=== PATIENT | male | born 1960 | race Hispanic/Latino ===

== ENCOUNTER 2024-11-04 12:37 | Observation (INO) | payer BC ==
[~2024-11-04] VITALS: Ht 172.7 cm; Wt 97.5 kg
--- NOTE | 2024-11-04 12:52 | NUR ---
PATIENT IN ER LOBBY. PENDING GFR RESULTS, IV SITE & CONSENT FOR CT EXAM.
--- NOTE | 2024-11-04 13:12 | EKG ---
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
--- NOTE | 2024-11-04 13:36 | ERN ---
General Chief Complaint: Dizzy/Light Headed Stated Complaint: VOMITTING,DIZZY Time Seen by MD: 12:38 History of Present Illness Initial Comments 64-year-old male who presents for dizziness and vomiting. Patient reports in the middle night he felt a spinning sensation. He was able fall back to sleep. New woke up this morning he felt this has been a sensation again. He reports with a remove his head for the last arrived and feels very very dizzy. He was vomited multiple times. He was no headache. No recent falls. He was not take a blood thinner. He was no chest pain. No neck stiffness or injury. Denies any other symptoms. He was never had this before. Denies recent ear infection and congestion. Allergies: Coded Allergies: No Known Drug Allergies (Unverified Allergy, Unknown, 11/04/24) Home Meds Reported Medications Atorvastatin Calcium (LIPITOR) 20 Mg Tab, 20 MG PO HS, TAB 11/04/24 Past Medical History Past Medical History: High Cholesterol Past Surgical History: None ROS Dictation CONSTITUTIONAL: No chills, no fever, no weakness, no diaphoresis, no malaise. HEAD/FACE: No signs of trauma. EENT: No eye pain, no blurred vision, no tearing, no double vision, no ear pain, no ear discharge, no nose pain, no nasal congestion, no throat pain, no throat swelling, no mouth pain. RESPIRATORY: No cough, no orthopnea, no SOB, no stridor, no wheezing. CARDIOVASCULAR: No chest pain, no edema, no palpitations, no syncope. GASTROINTESTINAL/ABDOMINAL: No abdominal pain, no constipation, no diarrhea, no nausea, no vomiting. GENITOURINARY: No abnormal discharge, no dysuria, no frequent urination, no hematuria. No complaints of pain in the genitals. MUSCULOSKELETAL: No back pain, no gout, no joint pain, no joint swelling, no muscle pain, no muscle stiffness, no neck pain. INTEGUMENTARY: No change in color, no change in hair/nails, no dryness, no lesion, no lumps, no rash. NEUROLOGICAL/PSYCH: Dizziness and vomiting. HEMATOLOGIC/LYMPHATIC: Not anemic, no history of blood clots, no apparent bleeding, no bruising, glands not swollen. All Systems Negative, Except as Noted. Physical Exam Physical Exam Dictation VITAL SIGNS: Reviewed. GENERAL APPEARANCE: Alert, oriented x3, moderate distress due to the dizziness HEAD AND FACE: Non-traumatic. EYES: PERRL, pink conjunctivas, eyelid no trauma, anterior chamber clear. EARS: Pinnas intact and no signs of trauma or erythema. Ear canals clear and no discharge. TMs no erythema. NOSE: No discharge, no bleeding. OROPHARYNX: Mouth normal, teeth no caries, tongue pink. Pharynx clear, no erythema. Tonsils no exudates, no abscesses noted. Mucous membrane moist. NECK: Supple, non-tender, no thyromegaly, no masses, no JVD, no bruits. BREAST: Deferred. CHEST: No tenderness, no crepitus, no paradoxical movement, no retractions. LUNGS: Clear, well-ventilated, symmetric, no rales, no wheezing, no rhonchi, no stridor, good breath sounds bilaterally. HEART: Regular rate, regular rhythm, no murmur, no gallops. VASCULAR: No peripheral edema. ABDOMEN: Soft, positive bowel sounds, nondistended, no guarding, nontender, no rebound, no masses no hepatomegaly, no splenomegaly, no Rueda's sign, no hernias. RECTAL: Deferred. GENITAL: Deferred. NEUROLOGICAL: Normal speech, gross motor function intact, gross sensory function intact. MUSCULOSKELETAL: Neck nontender, full range of motion, back nontender, full range of motion. EXTREMITIES: Nontender, full range of motion. SKIN: Color pink, dry, no turgor, no rash, no lacerations, no abrasions, no contusions. LYMPHATICS: Deferred. Results Laboratory and Microbiology Lab and Micro Result Laboratory Tests Test 11/04/24 13:42 White Blood Count 7.4 K/uL (4.8-10.8) Red Blood Count 5.04 MIL/uL (4.50-6.20) Hemoglobin 15.2 g/dL (14.0-18.0) Hematocrit 44.7 % (42-54) Mean Corpuscular Volume 88.7 fL (79-99) Mean Corpuscular Hemoglobin 30.2 pg (27.0-33.0) Mean Corpuscular Hemoglobin Concent 34.0 g/dL (32.0-36.0) Red Cell Distribution Width 13.4 % (11.0-15.5) Platelet Count 244 K/uL (130-400) Mean Platelet Volume 9.7 fL (7.5-10.5) Immature Granulocyte % (Auto) 0.3 % (0-1) Neutrophils (%) (Auto) 79.8 % (40.0-77.0) H Lymphocytes (%) (Auto) 16.3 % (21.0-51.0) L Monocytes (%) (Auto) 3.4 % (3.0-13.0) Eosinophils (%) (Auto) 0.1 % (0.0-8.0) Basophils (%) (Auto) 0.1 % (0.0-5.0) Neutrophils # (Auto) 5.9 K/uL (1.8-7.7) Lymphocytes # (Auto) 1.2 K/uL (1.0-4.8) Monocytes # (Auto) 0.3 K/uL (0.1-1.0) Eosinophils # (Auto) 0.01 K/uL (0.00-0.70) Basophils # (Auto) 0.01 K/uL (0.00-0.20) Absolute Immature Granulocyte (auto 0.02 K/uL (0-1) Nucleated Red Blood Cells 0.0 % (0.0-0.19) Prothrombin Time 10.7 SEC (9.6-11.6) Prothromb Time International Ratio 1.01 (0.85-1.15) Activated Partial Thromboplast Time 26.2 SEC (26.3-35.5) L Urine Color YELLOW (YELLOW) Urine Appearance HAZY (CLEAR) Urine pH 7.0 (5.0-8.0) Urine Specific [place] 1.022 (1.001-1.031) Urine Protein 10 mg/dL (NEGATIVE) H Urine Glucose (UA) NEGATIVE mg/dL (NEGATIVE) Urine Ketones NEGATIVE mg/dL (NEGATIVE) Urine Occult Blood NEGATIVE (NEGATIVE) Urine Nitrate NEGATIVE (NEGATIVE) Urine Bilirubin NEGATIVE mg/dL (NEGATIVE) Urine Urobilinogen 0.2 mg/dL (0.2-1.0) Urine Leukocyte Esterase NEGATIVE Adolfo/uL Urine RBC 2-5 /HPF (0-1) H Urine WBC 0-1 /HPF (0-1) Urine Squamous Epithelial Cells RARE /HPF (0-2) Urine Amorphous Crystals (Auto) FEW /LPF (None Seen) Urine Bacteria FEW /HPF (None Seen) Sodium Level 140 mmol/L (136-145) Potassium Level 4.1 mmol/L (3.5-5.1) Chloride Level 103 mmol/L (101-111) Carbon Dioxide Level 29 mmol/L (21-32) Blood Urea Nitrogen 16 mg/dL (7-18) Creatinine 0.9 mg/dL (0.5-1.3) Glomerular Filtration Rate Calc 96 mL/min (>90) Random Glucose 144 mg/dL (70-105) H Hemoglobin A1c 5.9 % (4.0-6.0) Estimated Average Glucose (eAG) 123 mg/dL (70-126) Total Calcium 8.5 mg/dL (8.5-10.1) Total Creatine Kinase 142 U/L (21-232) Troponin I High Sensitivity < 4 ng/L (4-75) L C-Reactive Protein, Quantitative < 0.50 mg/L (0.5-3.0) L B-Type Natriuretic Peptide 79 pg/mL (0-100) LDL Cholesterol 84 mg/dL (0-99) Procalcitonin < 0.05 ng/mL (0.05-0.5) L Thyroid Stimulating Hormone (TSH) 0.80 uIU/mL (0.36-3.74) MDM CC: Dizziness spinning sensation beginning earlier today Historian: Patient Comorbidities: He has been told that he was a prediabetic but does not take any current medications. Limitations by social determinants of health: None Differential diagnosis: Vertigo, central vertigo, cerebellar stroke, ENT cause, cardiac cause Initial vital signs are stable. Initial clinical exam does not show any obvious nystagmus. Cranial nerves are intact. [id number] normal. No lateral deficits. NIHSS of 0. Patient was not a TNK candidate, symptoms has been present for over 12 hours. Very low suspicion for large vessel occlusion due to the low NIHSS. EKG: Sinus rhythm, rate 63, normal axis, early R-wave progression, intervals are stable. No STEMI. Independently interpreted by me. Labs (independently interpreted by me ): The CBC is normal. Coags are normal. Metabolic panel normal. CK troponin BNP and LDL are normal. Urinalysis unremarkable. CT head without contrast ( independently interpreted by me ): No acute bleeding or abnormalities. CXR (independently interpreted by me ): No cardiomegaly pleural effusions or focal infiltrates. Based on the presentation it is difficult to tell if this is BPPV versus a central cause. He was no obvious focal neurologic deficits but you can when he is sitting still it was eyes closed he can feel the spinning sensation, it has been present for about 12 hours now. Recommended an admission for further treatment and evaluation and likely an MRI, treatment in ED: 1 L lactated Ringer's, meclizine oral, diazepam IV. Re-evaluation: Patient still has a normal neurologic examination but is still feeling vertiginous symptoms. Consultation: Hospitalist for admission. ED Course Orders Procedure Category Date Status Time Cbc With Differential LAB 11/04/24 Complete 12:46 Prothrombin Time With LAB 11/04/24 Complete INR 12:46 Partial LAB 11/04/24 Complete Thromboplastin Time 12:46 Ct Head/Brain W/O CT 11/04/24 Resulted Contrast 12:46 Chest 1vw RAD 11/04/24 Resulted 12:46 12 Lead Ekg Tracing- EKG 11/04/24 Complete Technical 12:46 Lactated Ringers PHA 11/04/24 Complete 1000ml (Lactated 13:00 Creatine Kinase, Total LAB 11/04/24 Complete 12:46 Ldl Direct LAB 11/04/24 Complete 12:46 Troponin I High LAB 11/04/24 Complete Sensitivity 12:46 Urinalysis Profile LAB 11/04/24 Complete 12:46 B-Type Natriuretic LAB 11/04/24 Complete Peptide 12:46 Bedside Glucose CPOE 11/04/24 Transmitted Fingerstick 12:46 Basic Metabolic Panel LAB 11/04/24 Complete 12:46 Ct Angio Head And Neck CT 11/04/24 Resulted 12:46 Meclizine Hcl 25 Mg PHA 11/04/24 Complete (Antivert 25 Mg) 13:00 Diazepam 5 Mg/Ml 2 Ml PHA 11/04/24 Complete Syg (Valium 5 Mg/M 13:00 Metoclopramide 10 PHA 11/04/24 Complete Mg/2 Ml Vial (Reglan 1 14:30 Aspirin 325mg Tab PHA 11/04/24 Complete (Aspirin 325mg Tab) 14:30 Iohexol (Omnipaque) PHA 11/04/24 Complete 14:29 Current Medications Medications (Trade) Dose Ordered Sig/Kye Route PRN Reason Start Time Stop Time Status Last Admin Dose Admin Aspirin (Aspirin 325mg Tab) 325 mg ONCE ONCE PO 11/04/24 14:30 11/04/24 14:31 DC 11/04/24 14:56 Diazepam (VALium 5 MG/ML 2 ML SYG) 2.5 mg ONCE ONCE IVP 11/04/24 13:00 11/04/24 13:01 DC 11/04/24 13:46 Iohexol (Omnipaque) 35,000 mg STK-MED ONCE IV 11/04/24 14:29 11/04/24 14:29 DC Lactated Ringer's 1,000 ml @ 250 mls/hr ONCE ONCE IV 11/04/24 13:00 11/04/24 16:59 DC 11/04/24 13:45 Meclizine HCl (ANTIvert 25 mg) 25 mg ONCE ONCE PO 11/04/24 13:00 11/04/24 13:01 DC 11/04/24 13:45 Metoclopramide HCl (regLAN 10MG IV) 5 mg ONCE ONCE IVP 11/04/24 14:30 11/04/24 14:31 DC 11/04/24 14:56 Vital Signs Date Time Temp Pulse Resp B/P (MAP) Pulse Ox O2 Delivery O2 Flow Rate FiO2 11/04/24 12:42 97.9 77 14 126/81 98 Room Air 0 DX & DISP Disposition: Inpatient (Hospitalist, Dr Campbell) Departure Impression: Primary Impression: Vertigo Additional Impression: Stroke-like symptoms Condition: Stable Referrals: SELF,REFERRAL (PCP) RIN PLUMMER DO Nov 04, 2024 13:36
[2024-11-04] MEDS: LACTATED RINGERS 1000ML 1,000 ML IV ONE (13:45)
[2024-11-04] MEDS: mecliZINE HCL 25 MG TABLET PO ONE (13:45)
[2024-11-04] MEDS: diazePAM 5 MG/ML 2 ML SYG IVP ONE (13:46)
[2024-11-04 13:52] LABS: BASOPHILS # (AUTO) 0.01 K/uL (0.00-0.20); BASOPHILS % (AUTO) 0.1 % (0.0-5.0); EOSINOPHILS # (AUTO) 0.01 K/uL (0.00-0.70); EOSINOPHILS % (AUTO) 0.1 % (0.0-8.0); HEMATOCRIT 44.7 % (42-54); IMMATURE GRANULOCYTE ABSOLUTE 0.02 K/uL (0-1); LYMPHOCYTES # (AUTO) 1.2 K/uL (1.0-4.8); LYMPHOCYTES % (AUTO) 16.3 % (21.0-51.0); MEAN CORPUSCULAR HEMOGLOBIN 30.2 pg (27.0-33.0); MEAN CORPUSCULAR VOLUME 88.7 fL (79-99); MONOCYTES # (AUTO) 0.3 K/uL (0.1-1.0); MONOCYTES % (AUTO) 3.4 % (3.0-13.0); NEUTROPHILS # (AUTO) 5.9 K/uL (1.8-7.7); NEUTROPHILS % (AUTO) 79.8 % (40.0-77.0); PLATELET COUNT (AUTO) 244 K/uL (130-400); RED BLOOD CELL COUNT(AUTO) 5.04 MIL/uL (4.50-6.20); RED CELL DISTRIBUTION WIDTH 13.4 % (11.0-15.5); WHITE BLOOD COUNT (AUTO) 7.4 K/uL (4.8-10.8)
[2024-11-04 13:59] LABS: ADD UA MICROSCOPIC YES; APPEARANCE,URINE HAZY (CLEAR); BILIRUBIN,URINE NEGATIVE (NEGATIVE); COLOR,URINE YELLOW (YELLOW); GLUCOSE, URINE (UA) NEGATIVE (NEGATIVE); KETONES,URINE NEGATIVE (NEGATIVE); LEUKOCYTE ESTERASE ,URINE NEGATIVE Leu/uL (NEGATIVE); NITRATE,URINE NEGATIVE (NEGATIVE); OCCULT BLOOD,URINE NEGATIVE (NEGATIVE); PROTEIN,URINE 10 mg/dL (NEGATIVE); UROBILINOGEN,URINE 0.2 mg/dL (0.2-1.0)
--- NOTE | 2024-11-04 14:02 | HMCIMG ---
CT HEAD WITHOUT CONTRAST INDICATION: Dizziness, nausea and vomiting TECHNIQUE: Noncontrast axial helical CT images from the vertex through the skull base using 5 mm slice thickness without contrast material. CT was performed with one or more of the following dose reduction techniques: Automated exposure control, adjustment of the mA and/or kV according to patient size, or use of iterative reconstruction technique. COMPARISON: None FINDINGS: The cerebral and cerebellar hemispheres are age-appropriate in appearance. No evidence for abnormal extra-axial fluid collections or masses. The ventricles and sulci are normal in size and configuration. No evidence for intracranial parenchymal, epidural, or subdural hemorrhage, mass effect or midline shift. The paez-white matter differentiation is well preserved. No secondary evidence to suggest acute ischemia. The brainstem and cerebellum appear normal. The visualized orbits appear unremarkable. The visible paranasal sinuses and mastoid air cells are clear. The calvarium appears normal. IMPRESSION: No acute intracranial process identified.
[2024-11-04 14:03] LABS: INR 1.01 (0.85-1.15); PROTHROMBIN TIME 10.7 SEC (9.6-11.6)
[2024-11-04 14:05] LABS: BACTERIA,URINE FEW /HPF (None Seen); MUCUS,URINE FEW LPF (None Seen); PARTIAL THROMBOPLASTIN TIME 26.2 SEC (26.3-35.5); SQUAMOUS EPITHELIAL CELL,UR RARE /HPF (0-2); WBC,URINE 0-1 /HPF (0-1)
[2024-11-04 14:11] LABS: CREATININE 0.9 mg/dL (0.5-1.3); POTASSIUM 4.1 mmol/L (3.5-5.1)
[2024-11-04 14:12] LABS: B-TYPE NATRIURETIC PEPTIDE 79 pg/mL (0-100)
[2024-11-04] MEDS ORDERED: IOHEXOL 350 MG/ML 100ML INFUS..BTL IV ONE (14:29)
--- NOTE | 2024-11-04 14:46 | HMCIMG ---
PORTABLE CHEST RADIOGRAPH INDICATION: chest pain COMPARISON: None FINDINGS: Heart size is normal. The pulmonary vascularity and wallace appear normal. No abnormal pulmonary parenchymal opacity or consolidation identified. No significant pleural effusion noted. No pneumothorax detected. IMPRESSION: No radiographic evidence for any acute cardiopulmonary process.
[2024-11-04] MEDS: ASPIRIN 325MG TAB PO ONE (14:56)
[2024-11-04] MEDS: metoCLOPRAmide 10 MG/2 ML VIAL IVP ONE (14:56)
--- NOTE | 2024-11-04 15:31 | HMCIMG ---
CT ANGIO HEAD AND NECK HISTORY: dizziness TECHNIQUE: CT ANGIO HEAD AND NECK. The study was performed using angiographic technique with maximum intensity projection reconstruction images. CT was performed with one or more of the following dose reduction techniques: Automated exposure control, adjustment of the mA and/or kV according to the patient's size, or use of the iterative reconstruction technique. Contrast: 100 cc of Omnipaque. Comparison: CT head performed on the same date. FINDINGS: The visualized bilateral vertebral and basilar arteries are patent. No significant stenosis in the posterior cerebral arteries. The bilateral internal carotid arteries are patent without flow-limiting stenosis. No significant stenosis seen in the bilateral anterior cerebral and middle cerebral arteries up to the bifurcation. No CT evidence of cerebral aneurysm or abnormal arteriovenous communication is seen. Diffuse atherosclerosis changes are present. IMPRESSION: No major vessel occlusion or high-grade stenosis is identified.
[2024-11-04] MEDS ORDERED: ATOR10 PO (15:52)
[2024-11-04] MEDS ORDERED: MAGNESIUM 2GM PREMIX 50ML 50 ML IV PRN (16:00)
[2024-11-04] MEDS ORDERED: acetaMINOPHEN 500 MG TABLET PO PRN (16:00)
[2024-11-04] MEDS ORDERED: ondanSETRON 4MG INJ IVP PRN (16:00)
[2024-11-04] MEDS ORDERED: PoTASSium chl 10% ELIXIR 20MEQ 20 MEQ/15 ML UDCUP PO PRN (16:00)
[2024-11-04] MEDS ORDERED: hydrALAZine 20MG/ML VIAL IV PRN (16:00)
[2024-11-04] MEDS ORDERED: PoTASSium chloRIDE 20MEQ/100ML 100 ML IV PRN (16:00)
[2024-11-04] MEDS ORDERED: mecliZINE HCL 12.5 MG TABLET PO PRN (16:00)
[2024-11-04] MEDS ORDERED: PoTASSium chloRIDE 20MEQ ER 20 MEQ ERTAB PO PRN (16:00)
[2024-11-04 16:24] LABS: HEMOGLOBIN A1C 5.9 % (4.0-6.0)
[2024-11-04] MEDS: 0.9%NACL 1000ML 1,000 ML IV SCH (16:28)
--- NOTE | 2024-11-04 18:22 | HP ---
[facility] PH[facility] Date of Service: Nov 04, 2024 Time of Service: 18:16 HISTORY OF PRESENT ILLNESS: 64-year-old male with past medical history of hyperlipidemia presented to the hospital secondary to dizziness and vomiting. The patient states his symptoms started yesterday which was associated with a spinning sensation. He had associated nausea and vomiting. He denied any head trauma, falls, syncopal episode. Denied any fever, chills. He noted headache in the occipital area which improved. Denied any upper or lower extremity weakness, paresthesias. Denied any recent URI, rhinorrhea, cough, sputum production. Denied any dysarthria, dysphagia. Denied any neck stiffness, changes in his hearing, ear pain. He does not take any blood thinners at home. He also feels his symptoms are exacerbated by change in head position. Labs in the ED were notable for white count of 7.4, hemoglobin was 15.2, platelet count was 244 K, sodium was 140, potassium was 4.1, creatinine was 0.9, blood glucose was one four for Patient underwent CT head which was negative, CT angio of the head and neck showed no major vessel occlusion or high-grade stenosis. Chest x-ray showed no evidence of any infiltrates. Patient received diazepam, meclizine with some improvement in symptoms but his symptoms did not fully improve and he was recommended to be admitted to the hospital for further evaluation. REVIEW OF SYSTEMS CONSTITUTIONAL: Denies fevers, chills, or night sweats. No unintentional weight loss reported. NEUROLOGICAL: Denies headache, amaurosis fugax, motor weakness, sensory deficit , gait abnormalities, or tremors. Positive for Vertigo/spinning sensation ENT: No hearing loss, otalgia, otorrhea, rhinitis, rhinorrhea, hoarseness, or sore throat. CARDIOVASCULAR: Denies any exertional angina, dyspnea on exertion, orthopnea, paroxysmal nocturnal dyspnea, palpitations, life-threatening arrhythmias, claudication. PULMONARY: Denies any shortness of breath, cough, phlegm/sputum, hemoptysis, pleuritic chest pain. GASTROINTESTINAL: Denies any type of dysphagia to either liquids or solids. Denies nausea, vomiting, pyrosis, early satiety, abdominal pain, diarrhea, constipation, or changes in stool consistency or caliber. Denies coffee-ground emesis, hematemesis, hematochezia, or melanotic stools. GENITOURINARY: Denies frequency, urgency, nocturia, hematuria or incontinence (Storage/Irritative symptoms.) Low urinary stream, straining to void, urinary intermittency or hesitancy, splitting of the voiding stream, terminal dribbling. ENDOCRINOLOGIC: Denies polyuria, polydipsia, polyphagia or heat/cold intolerances. HEMATOLOGIC: Denies thrombophilia/previous clots, or coagulopathy/bleeding disorders. ONCOLOGIC: Denies personal history of malignancy. DERMATOLOGIC: Denies rashes or pruritus. PSYCHIATRIC: Denies any suicidal or homicidal ideation. Denies hallucinations. PAST MEDICAL HISTORY: Hyperlipidemia PAST SURGICAL HISTORY: Denied any surgical history. PAST SOCIAL HISTORY: Patient drinks beer every 3-4 days. Drinks around 3-4 cans of beer. He has been drinking more than 10 years. Denied any smoking. Denied any drug use FAMILY HISTORY: Denied any pertinent family history Coded Allergies: No Known Drug Allergies (Unverified Allergy, Unknown, 11/04/24) PHYSICAL EXAM GENERAL APPEARANCE: The patient is awake, alert, and oriented, in no acute cardiopulmonary distress. NEUROLOGICAL: Cranial nerves II-XII grossly intact. Motor is 5/5 in bilateral upper and lower extremities proximal to distal. No sensory deficits. HEENT: Face is symmetric. Pupils are equal and reactive. Extraocular movements are intact. NECK: Supple. No JVD. No thyromegaly. No submental, submandibular, pre- /postauricular, occipital or supraclavicular lymphadenopathy. CHEST: Normal chest expansion. No Telemetry. LUNGS: Absence of any rales, rhonchi or any wheezing. CARDIOVASCULAR: Regular. S1 and S2 normal. No appreciable rubs, murmurs or gallops. ABDOMEN: Soft, nontender, and nondistended. There is no rebound, voluntary guarding, or rigidity. : Deferred. No Johnson. EXTREMITIES: Non-edematous and not cyanotic. No clubbing. Good capillary refill. SKIN: No skin breakdown. Vital Sign (Last 24 Hours) 11/04/24 17:13 Temp 97.9 Pulse 74 Resp 16 B/P (MAP) 130/71 Pulse Ox 98 O2 Delivery Room Air* O2 Flow Rate 0 FiO2 21 LABS: Laboratory: Test 11/04/24 13:42 Range/Units White Blood Count 7.4 4.8-10.8 K/uL Red Blood Count 5.04 4.50-6.20 MIL/uL Hemoglobin 15.2 14.0-18.0 g/dL Hematocrit 44.7 42-54 % Mean Corpuscular Volume 88.7 79-99 fL Mean Corpuscular Hemoglobin 30.2 27.0-33.0 pg Mean Corpuscular Hemoglobin Concent 34.0 32.0-36.0 g/dL Red Cell Distribution Width 13.4 11.0-15.5 % Platelet Count 244 130-400 K/uL Mean Platelet Volume 9.7 7.5-10.5 fL Immature Granulocyte % (Auto) 0.3 0-1 % Neutrophils (%) (Auto) 79.8 H 40.0-77.0 % Lymphocytes (%) (Auto) 16.3 L 21.0-51.0 % Monocytes (%) (Auto) 3.4 3.0-13.0 % Eosinophils (%) (Auto) 0.1 0.0-8.0 % Basophils (%) (Auto) 0.1 0.0-5.0 % Neutrophils # (Auto) 5.9 1.8-7.7 K/uL Lymphocytes # (Auto) 1.2 1.0-4.8 K/uL Monocytes # (Auto) 0.3 0.1-1.0 K/uL Eosinophils # (Auto) 0.01 0.00-0.70 K/uL Basophils # (Auto) 0.01 0.00-0.20 K/uL Absolute Immature Granulocyte (auto 0.02 0-1 K/uL Nucleated Red Blood Cells 0.0 0.0-0.19 % Prothrombin Time 10.7 9.6-11.6 SEC Prothromb Time International Ratio 1.01 0.85-1.15 Activated Partial Thromboplast Time 26.2 L 26.3-35.5 SEC Urine Color YELLOW YELLOW Urine Appearance HAZY CLEAR Urine pH 7.0 5.0-8.0 Urine Specific [place] 1.022 1.001-1.031 Urine Protein 10 H NEGATIVE mg/dL Urine Glucose (UA) NEGATIVE NEGATIVE mg/dL Urine Ketones NEGATIVE NEGATIVE mg/dL Urine Occult Blood NEGATIVE NEGATIVE Urine Nitrate NEGATIVE NEGATIVE Urine Bilirubin NEGATIVE NEGATIVE mg/dL Urine Urobilinogen 0.2 0.2-1.0 mg/dL Urine Leukocyte Esterase NEGATIVE NEGATIVE Adolfo/uL Urine RBC 2-5 H 0-1 /HPF Urine WBC 0-1 0-1 /HPF Urine Squamous Epithelial Cells RARE 0-2 /HPF Urine Amorphous Crystals (Auto) FEW None Seen /LPF Urine Bacteria FEW None Seen /HPF Sodium Level 140 136-145 mmol/L Potassium Level 4.1 3.5-5.1 mmol/L Chloride Level 103 101-111 mmol/L Carbon Dioxide Level 29 21-32 mmol/L Blood Urea Nitrogen 16 7-18 mg/dL Creatinine 0.9 0.5-1.3 mg/dL Glomerular Filtration Rate Calc 96 >90 mL/min Random Glucose 144 H 70-105 mg/dL Hemoglobin A1c 5.9 4.0-6.0 % Estimated Average Glucose (eAG) 123 70-126 mg/dL Total Calcium 8.5 8.5-10.1 mg/dL Total Creatine Kinase 142 21-232 U/L Troponin I High Sensitivity < 4 L 4-75 ng/L C-Reactive Protein, Quantitative < 0.50 L 0.5-3.0 mg/L B-Type Natriuretic Peptide 79 0-100 pg/mL LDL Cholesterol 84 0-99 mg/dL Procalcitonin < 0.05 L 0.05-0.5 ng/mL Thyroid Stimulating Hormone (TSH) 0.80 0.36-3.74 uIU/mL Current Medications Medications (Trade) Dose Ordered Sig/Kye Route PRN Reason Start Time Stop Time Status Last Admin Dose Admin Acetaminophen (TYLenol 500MG TAB) 500 mg Q6H PRN PO MILD PAIN (1-3) 11/04/24 16:00 12/04/24 15:59 Famotidine (Pepcid 20mg Vial) 20 mg BID IV 11/04/24 21:00 12/04/24 20:59 Hydralazine HCl (APRESOLine 20MG INJ) 10 mg Q6H PRN IV ADMINISTER FOR SBP > 180 11/04/24 16:00 12/04/24 15:59 Magnesium Sulfate 50 ml @ 0 mls/hr PROTOCOL PRN IV hypomagnesemia 11/04/24 16:00 12/04/24 15:59 Meclizine HCl (ANTIvert 12.5 mg) 12.5 mg TID PRN PO DIZZINESS 11/04/24 16:00 12/04/24 15:59 Ondansetron HCl (zoFRAN 4MG INJ) 4 mg Q6H PRN IVP NAUSEA/VOMITING 11/04/24 16:00 12/04/24 15:59 Potassium Chloride 100 ml @ 100 mls/hr AD PRN IV POTASSIUM PROTOCOL 11/04/24 16:00 12/04/24 15:59 Potassium Chloride (K-Dur/Klor-Con 20meq) 20 meq AD PRN PO POTASSIUM PROTOCOL 11/04/24 16:00 12/04/24 15:59 Potassium Chloride (KCl 10% Elixir 20meq/15ml) 20 meq AD PRN PO POTASSIUM PROTOCOL 11/04/24 16:00 12/04/24 15:59 Sodium Chloride 1,000 ml @ 100 mls/hr Q10H IV 11/04/24 16:00 12/04/24 15:59 11/04/24 16:28 100 MLS/HR DIAGNOSTICS / RADIOLOGY: [ ] ASSESSMENT: Vertigo differential peripheral versus central Suspected benign positional vertigo Hyperlipidemia PLAN: - patient to be admitted to medical-surgical unit with telemetry -in reference to vertigo. We will also obtain a brain MRI to rule out stroke. Symptoms likely in setting of BPPV. We will request Neurology consultation. We will obtain PT evaluation for vestibular exercises. -start patient on meclizine 12.5 mg t.i.d. p.r.n. for vertigo -start NS for gentle hydration -further orders per hospitalization course. Advanced Care Planning Which of the following were discussed: Hospice care: Yes __ No _x_ Therapeutic options: Yes __ No __ Advance directives: Yes __ No __ Other discussions: Pt is full code Discussed with who?: patient (Patient, family or surrogates) Voluntary nature of this service was explained to the patient? Yes _x_ No __ Amount of time spent: 25 minutes CARLOS Finney MD, MD Nov 04, 2024 18:22
--- NOTE | 2024-11-04 18:30 | NUR ---
DR MEDRANO MADE AWARE OF NEURO CONSULT
[2024-11-04] MEDS: atorVAStatin 10 MG TABLET PO SCH (20:49)
[2024-11-04] MEDS: FAMOTIDINE 20MG VIAL IV SCH (20:49)
[2024-11-05 05:01] VITALS: O2SAT 98
[2024-11-05 07:12] LABS: BASOPHILS # (AUTO) 0.02 K/uL (0.00-0.20); BASOPHILS % (AUTO) 0.4 % (0.0-5.0); EOSINOPHILS # (AUTO) 0.07 K/uL (0.00-0.70); EOSINOPHILS % (AUTO) 1.4 % (0.0-8.0); HEMATOCRIT 41.7 % (42-54); IMMATURE GRANULOCYTE ABSOLUTE 0.01 K/uL (0-1); LYMPHOCYTES # (AUTO) 1.5 K/uL (1.0-4.8); LYMPHOCYTES % (AUTO) 30.3 % (21.0-51.0); MEAN CORPUSCULAR HEMOGLOBIN 29.7 pg (27.0-33.0); MEAN CORPUSCULAR HGB CONC 33.1 g/dL (32.0-36.0); MEAN CORPUSCULAR VOLUME 89.9 fL (79-99); MONOCYTES # (AUTO) 0.4 K/uL (0.1-1.0); MONOCYTES % (AUTO) 8.8 % (3.0-13.0); NEUTROPHILS # (AUTO) 2.9 K/uL (1.8-7.7); NEUTROPHILS % (AUTO) 58.9 % (40.0-77.0); PLATELET COUNT (AUTO) 216 K/uL (130-400); RED BLOOD CELL COUNT(AUTO) 4.64 MIL/uL (4.50-6.20); RED CELL DISTRIBUTION WIDTH 13.6 % (11.0-15.5)
[2024-11-05 07:27] LABS: POTASSIUM 4.1 mmol/L (3.5-5.1)
--- NOTE | 2024-11-05 10:35 | CONS ---
CONSULTATION NOTE Date of Service: Nov 05, 2024 Reason for Consultation: Evaluation of dizziness Requesting Physician: Hospitalist HISTORY OF PRESENT ILLNESS: Mr. Morin, a 64-year-old right-handed male with a history of prediabetes and hypercholesterolemia, presents with a chief complaint of vertigo that started 2 days ago. The patient reports that he began experiencing dizziness during the day while at home cutting grass. Yesterday morning, he had a sensation of falling out of bed despite lying down. When he moved his head, he felt that everything was spinning around him. This was accompanied by nausea. The vertigo was severe enough that he had difficulty walking, needing to hold onto objects for support. He denies any weakness on either side of his body or difficulty moving his arms or legs. Mr. Morin also mentions a history of discomfort behind his left ear, describing it as a pressure-like sensation that sometimes extends further down his neck. He reports a gradual decline in his hearing, noting that his sometimes scolds him for not hearing her when she speaks. Additionally, he has been experiencing a mild cough recently. The patient's symptoms have largely resolved since admission. He reports being able to walk to the bathroom without any problems and denies any current dizziness or vertigo. 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 HEENT: Positive for decreased hearing, eye tearing. Negative for sore throat. Respiratory: Positive for mild cough. Gastrointestinal: Positive for nausea. Neurological: Positive for dizziness, vertigo. Musculoskeletal: Positive for neck discomfort. PAST MEDICAL HISTORY: Dyslipidemia, PAST SURGICAL HISTORY: Noncontributory PAST SOCIAL HISTORY: Tobacco recreational drug abuse FAMILY HISTORY: No family history of stroke or seizures Coded Allergies: No Known Drug Allergies (Unverified Allergy, Unknown, 11/04/24) PHYSICAL EXAM Mental status: The patient is alert, attentive, and oriented. Speech is clear and fluent with good repetition, comprehension, and naming. Pt recalls 3/3 objects at 5 minutes. Cranial nerves: CN II: Visual buchanan are full to confrontation. CN III, IV, : At primary gaze, there is no eye deviation. CN V: Facial sensation is intact to pinprick in all 3 divisions bilaterally. Corneal responses are intact. CN VII: Face is symmetric with normal eye closure and smile. CN VIII: Hearing is normal to rubbing fingers CN IX, X: Palate elevates symmetrically. Phonation is normal. CN XI: Head turning and shoulder shrug are intact CN XII: Tongue is midline with normal movements and no atrophy. Motor: There is no pronator drift of out-stretched arms. Muscle bulk and tone are normal. Strength is full bilaterally. Reflexes: Reflexes are 2+ and symmetric at the biceps, triceps, knees, and ankles. Plantar responses are flexor. Sensory: Light touch, pinprick, position sense, and vibration sense are intact in fingers and toes. Coordination: Rapid alternating movements and fine finger movements are intact. There is no dysmetria on [id number]-sm-[id number] and [id number]-[id number]. There are no abnormal or extraneous movements. Romberg is absent. Gait/Stance: Not evaluated NIHSS: 0 Vital Sign (Last 24 Hours) 11/05/24 05:01 Temp 98.1 Pulse 62 Resp 16 B/P (MAP) 109/70 Pulse Ox 98 O2 Delivery Room Air* O2 Flow Rate 0 FiO2 21 LABS: Laboratory: Test 11/05/24 06:43 11/04/24 13:42 Range/Units White Blood Count 5.0 # 4.8-10.8 K/uL Red Blood Count 4.64 4.50-6.20 MIL/uL Hemoglobin 13.8 L 14.0-18.0 g/dL Hematocrit 41.7 L 42-54 % Mean Corpuscular Volume 89.9 79-99 fL Mean Corpuscular Hemoglobin 29.7 27.0-33.0 pg Mean Corpuscular Hemoglobin Concent 33.1 32.0-36.0 g/dL Red Cell Distribution Width 13.6 11.0-15.5 % Platelet Count 216 130-400 K/uL Mean Platelet Volume 9.7 7.5-10.5 fL Immature Granulocyte % (Auto) 0.2 0-1 % Neutrophils (%) (Auto) 58.9 40.0-77.0 % Lymphocytes (%) (Auto) 30.3 21.0-51.0 % Monocytes (%) (Auto) 8.8 3.0-13.0 % Eosinophils (%) (Auto) 1.4 0.0-8.0 % Basophils (%) (Auto) 0.4 0.0-5.0 % Neutrophils # (Auto) 2.9 1.8-7.7 K/uL Lymphocytes # (Auto) 1.5 1.0-4.8 K/uL Monocytes # (Auto) 0.4 0.1-1.0 K/uL Eosinophils # (Auto) 0.07 0.00-0.70 K/uL Basophils # (Auto) 0.02 0.00-0.20 K/uL Absolute Immature Granulocyte (auto 0.01 0-1 K/uL Nucleated Red Blood Cells 0.0 0.0-0.19 % Sodium Level 141 136-145 mmol/L Potassium Level 4.1 3.5-5.1 mmol/L Chloride Level 107 101-111 mmol/L Carbon Dioxide Level 29 21-32 mmol/L Blood Urea Nitrogen 13 7-18 mg/dL Creatinine 1.0 0.5-1.3 mg/dL Glomerular Filtration Rate Calc 85 >90 mL/min Random Glucose 112 H 70-105 mg/dL Total Calcium 8.2 L 8.5-10.1 mg/dL Prothrombin Time 10.7 9.6-11.6 SEC Prothromb Time International Ratio 1.01 0.85-1.15 Activated Partial Thromboplast Time 26.2 L 26.3-35.5 SEC Urine Color YELLOW YELLOW Urine Appearance HAZY CLEAR Urine pH 7.0 5.0-8.0 Urine Specific [place] 1.022 1.001-1.031 Urine Protein 10 H NEGATIVE mg/dL Urine Glucose (UA) NEGATIVE NEGATIVE mg/dL Urine Ketones NEGATIVE NEGATIVE mg/dL Urine Occult Blood NEGATIVE NEGATIVE Urine Nitrate NEGATIVE NEGATIVE Urine Bilirubin NEGATIVE NEGATIVE mg/dL Urine Urobilinogen 0.2 0.2-1.0 mg/dL Urine Leukocyte Esterase NEGATIVE NEGATIVE Adolfo/uL Urine RBC 2-5 H 0-1 /HPF Urine WBC 0-1 0-1 /HPF Urine Squamous Epithelial Cells RARE 0-2 /HPF Urine Amorphous Crystals (Auto) FEW None Seen /LPF Urine Bacteria FEW None Seen /HPF Hemoglobin A1c 5.9 4.0-6.0 % Estimated Average Glucose (eAG) 123 70-126 mg/dL Total Creatine Kinase 142 21-232 U/L Troponin I High Sensitivity < 4 L 4-75 ng/L C-Reactive Protein, Quantitative < 0.50 L 0.5-3.0 mg/L B-Type Natriuretic Peptide 79 0-100 pg/mL LDL Cholesterol 84 0-99 mg/dL Procalcitonin < 0.05 L 0.05-0.5 ng/mL Thyroid Stimulating Hormone (TSH) 0.80 0.36-3.74 uIU/mL DIAGNOSTICS / RADIOLOGY: CT scan of the head without contrast: Generalized cortical atrophy CTA head and neck: No large vessel occlusion or significant stenosis ASSESSMENT / PLAN: Mr. Morin, a 64-year-old right-handed male with a history of prediabetes and hypercholesterolemia, presents with acute onset of severe vertigo starting 2 days ago. Acute Peripheral Vertigo Assessment: Patient reports sudden onset of severe vertigo 2 days ago, with associated nausea and gait instability. Symptoms were exacerbated by head movement and positional changes. No associated weakness, facial droop, dysarthria, or other focal neurological deficits reported. CT and CTA of the head were negative. Given the severity of symptoms, lack of central neurological signs, and history of ear problems, this presentation is most consistent with peripheral vertigo, likely of vestibular origin. Differential diagnoses include benign paroxysmal positional vertigo (BPPV), vestibular neuritis, or Meniere's disease. Plan: - Obtain MRI of the brain with focus on neural stem to rule out central causes - Consult Physical Therapy for vestibular rehabilitation exercises - Symptomatic management with antivertigo - meclizine 25 mg q.8 hours as needed - Instruct patient to follow up with primary care physician for further ear eval uation - Return to ED if symptoms recur or worsen Hypercholesterolemia Assessment: Patient reports taking atorvastatin daily for cholesterol management. No recent lipid panel results discussed. Plan: - Continue atorvastatin daily Prediabetes Assessment: Patient reports a history of prediabetes. No current symptoms or management discussed. Plan: - Follow up with primary care physician for ongoing management - WFPBD (whole foods plan based diet) Chronic Left-sided Neck and Ear Discomfort Assessment: Patient reports chronic discomfort behind the left ear, sometimes extending down the neck. Describes it as a pressure sensation. Associated with decreased hearing acuity noted by family members. History of ear infections and previous specialist consultations. Plan: - Recommend follow-up with primary care physician for comprehensive ear evaluation and possible ENT referral Allergic Conjunctivitis Assessment: Patient reports excessive tearing. History of using loratadine for allergy symptoms as prescribed by primary care physician. Plan: - Continue loratadine as previously prescribed for allergy symptoms - Follow up with primary care physician for ongoing management Thank you for your consultation I will sign off SHANE IRBY MD Nov 05, 2024 10:35
[2024-11-05 12:00] VITALS: BP 102/55; PULSE 62; RESP 16; TEMP 98
--- NOTE | 2024-11-05 12:17 | HMCIMG ---
MRI BRAIN WITHOUT CONTRAST INDICATION: Vertigo COMPARISON: None. TECHNIQUE: Noncontrast multisequence multiplanar imaging of the brain. FINDINGS: Generalized mild cerebral cortical atrophy. The brain parenchyma appears normal in signal intensity without evidence for acute ischemia, hemorrhage or mass lesion. No hydrocephalus or extra-axial fluid collection identified. The pituitary, cavernous sinus, hypothalamic and pineal regions appear normal. The cranial-cervical junction, atlanto-dens interval and position of the cerebellar tonsils are within normal limits. Cranial nerve VII/VIII complexes appear normal without evidence for gross intracanalicular or cerebellar-pontine angle lesion. Chronic high T2 signal within the inferior left mastoid air cells suggests residual from remote inflammatory insult. Mild bilateral maxillary sinus mucosal thickening. Calvarium appears normal. IMPRESSION: No acute intracranial process identified.
[2024-11-05] MEDS ORDERED: MECL-226 PO (13:40)
--- NOTE | 2024-11-05 14:46 | NUR ---
PT AT BEDSIDE WITH PT, WALKING THE HALLWAY, DC INSTRUCTIONS GIVEN;VERBALLY AND WRITTEN, DC'D PIV TO LT. AC WITHOUT REDNESS, SWELLING OR TENDERNESS TO SITE, FAMILY MEMBER AT BEDSIDE, ESCORTED TO VEHICLE VIA WC, NO DISCOMFORT NOTED.
--- NOTE | 2024-11-05 14:56 | DS ---
Discharge Summary Hospital Course Summary: 64-year-old male with past medical history of hyperlipidemia presented to the hospital secondary to dizziness and vomiting. The patient states his symptoms started yesterday which was associated with a spinning sensation. He had associated nausea and vomiting. He denied any head trauma, falls, syncopal episode. Denied any fever, chills. He noted headache in the occipital area which improved. Denied any upper or lower extremity weakness, paresthesias. Denied any recent URI, rhinorrhea, cough, sputum production. Denied any dysarthria, dysphagia. Denied any neck stiffness, changes in his hearing, ear pain. He does not take any blood thinners at home. He also feels his symptoms are exacerbated by change in head position. He was admitted and neurology was consulted. A CT of the head was negative for any intracranial abnormalities. An MRI was ordered and did not show any acute stroke or abnormalities. Neurology cleared the patient for discharge with meclizine to follow up with his PCP to continue working up inner ear issues and to provide vestibular exercises. He may benefit from a referral to ENT. By hospital day 2 he was asymptomatic and discharged home . Line Lead(s): Neurology Procedure(s): MRI BRAIN WITHOUT CONTRAST INDICATION: Vertigo COMPARISON: None. TECHNIQUE: Noncontrast multisequence multiplanar imaging of the brain. FINDINGS: Generalized mild cerebral cortical atrophy. The brain parenchyma appears normal in signal intensity without evidence for acute ischemia, hemorrhage or mass lesion. No hydrocephalus or extra-axial fluid collection identified. The pituitary, cavernous sinus, hypothalamic and pineal regions appear normal. The cranial-cervical junction, atlanto-dens interval and position of the cerebellar tonsils are within normal limits. Cranial nerve VII/VIII complexes appear normal without evidence for gross intracanalicular or cerebellar-pontine angle lesion. Chronic high T2 signal within the inferior left mastoid air cells suggests residual from remote inflammatory insult. Mild bilateral maxillary sinus mucosal thickening. Calvarium appears normal. IMPRESSION: No acute intracranial process identified. CT ANGIO HEAD AND NECK HISTORY: dizziness TECHNIQUE: CT ANGIO HEAD AND NECK. The study was performed using angiographic technique with maximum intensity projection reconstruction images. CT was performed with one or more of the following dose reduction techniques: Automated exposure control, adjustment of the mA and/or kV according to the patient's size, or use of the iterative reconstruction technique. Contrast: 100 cc of Omnipaque. Comparison: CT head performed on the same date. FINDINGS: The visualized bilateral vertebral and basilar arteries are patent. No significant stenosis in the posterior cerebral arteries. The bilateral internal carotid arteries are patent without flow-limiting stenosis. No significant stenosis seen in the bilateral anterior cerebral and middle cerebral arteries up to the bifurcation. No CT evidence of cerebral aneurysm or abnormal arteriovenous communication is seen. Diffuse atherosclerosis changes are present. IMPRESSION: No major vessel occlusion or high-grade stenosis is identified. CT HEAD WITHOUT CONTRAST INDICATION: Dizziness, nausea and vomiting TECHNIQUE: Noncontrast axial helical CT images from the vertex through the skull base using 5 mm slice thickness without contrast material. CT was performed with one or more of the following dose reduction techniques: Automated exposure control, adjustment of the mA and/or kV according to patient size, or use of iterative reconstruction technique. COMPARISON: None FINDINGS: The cerebral and cerebellar hemispheres are age-appropriate in appearance. No evidence for abnormal extra-axial fluid collections or masses. The ventricles and sulci are normal in size and configuration. No evidence for intracranial parenchymal, epidural, or subdural hemorrhage, mass effect or midline shift. The paez-white matter differentiation is well preserved. No secondary evidence to suggest acute ischemia. The brainstem and cerebellum appear normal. The visualized orbits appear unremarkable. The visible paranasal sinuses and mastoid air cells are clear. The calvarium appears normal. IMPRESSION: No acute intracranial process identified. PORTABLE CHEST RADIOGRAPH INDICATION: chest pain COMPARISON: None FINDINGS: Heart size is normal. The pulmonary vascularity and wallace appear normal. No abnormal pulmonary parenchymal opacity or consolidation identified. No significant pleural effusion noted. No pneumothorax detected. IMPRESSION: No radiographic evidence for any acute cardiopulmonary process. Assessment/Plan: Vertigo differential peripheral versus central Suspected benign positional vertigo Hyperlipidemia Discharge Instructions: Follow up with PCP in 3-7 days. Please evaluate ears for underlying issues. Please provide vestibular exercises for patient. Please refer to ENT if indicated Home Medications: Active Scripts Meclizine HCl (Meclizine HCl) 12.5 Mg Tablet, 12.5 MG PO TID PRN for DIZZINESS, #60 TAB 1 Refill Prov:ROBERT MENSAH MD 11/05/24 Reported Medications Atorvastatin Calcium (LIPITOR) 20 Mg Tab, 20 MG PO HS, TAB 11/04/24 New Medications: Meclizine HCl (Meclizine HCl) 12.5 Mg Tablet 12.5 MG PO TID PRN for DIZZINESS, #60 TAB 1 Refill Continued Medications: Atorvastatin Calcium (Lipitor) 20 Mg Tab 20 MG PO HS, TAB Time spent arranging discharge: 31-60 minutes ROBERT MENSAH MD Nov 05, 2024 14:56
== END 2024-11-05 14:30 | disposition home or self-care (01) ==
LOC: EDH 12:37 → EDHIP 12:38 → UNDOADMOB 15:51 → INTOOBSV 15:51 → EDHIP 11-05 15:41
PROVIDERS: ADMIT Internal Medicine; ATTEND Internal Medicine
DX: R42 Dizziness and giddiness (principal); E78.00 Pure hypercholesterolemia, unspecified; E78.5 Hyperlipidemia, unspecified; R11.2 Nausea with vomiting, unspecified; R79.1 Abnormal coagulation profile; Z98.890 Other specified postprocedural states; Z79.899 Other long term (current) drug therapy
CPT/HCPCS: 96374; 96361 ×4; 96375; 99285; 83036; 84443; 82550; 83721; 84484; 80048 ×2; 83880; 85025 ×2; 85610; 85730; 86140; 81001; 36415 ×2; 71045; 70450; 70496; 70498; 93005; 84145; 96376; 87070; 87076; 87086; 87186; 70551; 97161; G0378 ×22; J7120; J3490 ×2; J7030; J3360; J2765; Q9967